=== PATIENT | male | born 1965 | race Caucasian/White ===

== ENCOUNTER 2017-09-02 16:36 | Inpatient (IN) | payer OTHER ==
[~2017-09-02] VITALS: Ht 162.6 cm; Wt 36.9 kg
[~2017-09-02 16:36] MED LIST: ABAC300; ACYC400 PO; ALBU90OI INH; ALBU90OI6; ALBU90OI6 INH; ALPR.5 PO; AMLO5 PO; AMOCLA875 PO; AMOX500; AMOX500 PO; ANTIVIRAL PO; ATRIPLA; AZIT250 PO; AZIT500 PO; AZITHROMYCIN PO; Augmentin 875-1 EACH PO; BUDE6HFA; Bactrim Ds Tab1 EACH PO; CEPH500 PO; COMPAZINE10 MG PO; COMPLERA; COMPLERA TABLE1 EACH PO; CULTURELLE1 EACH PO; DIPH50 PO; DOCU100 PO; DOXY100 PO; DULERA 200 MCG/13 GM INH; ERGO50000 PO; FLUC100 PO; FLUC200 PO; FLUSAL2505 IH; FLUSAL2505 INH; GABA100 PO; GUAI120S1 PO; GUAI600T33 PO; HYDACE10B PO; HYDACE25S PR; HYDACE5 PO; HYDACE5325 PO; ISODICACE PO; ITRA100 PO; K-Dur20 MEQ PO; LACT10SY PO; LEVFLO500 PO; LIDO4TS50 TOP; LIDO700A20 TOP; LINE600 PO; LOPE2C PO; LORA1 PO; Levaquin500 MG PO; Lomotil Tablet1 EACH PO; MAGIC MOUTHWASH; MAGOXI400 PO; MEGESTROL400 MG/10 PO; METO5A PO; MIRT15 PO; MIRT30 PO; MULVITMIND PO; MUPI2TC TOP; Megestrol400 MG/10 PO; Men's Multi-Vi1 EACH PO; Mucinex600 MG PO; NAPPHEOPSO OU; NEOPOLHCSU OT; NODOLOR CAPSUL1 EACH PO; NYST100000 PO; NYST100SU MT; Norco 10-325 T1 EACH PO; OLOP.1OPSO OU; OMEP20ER PO; ONDA4 PO; ONDA4 SL; ONDA4ODT MM; OXYACE5T PO; OXYC1TAB11 PO; OXYC5 PO; POTCHL20ER PO; PRED10 PO; PRED20 PO; PROAIR RESPICL90 MCG INH; PROC10 PO; PROCODE120 PO; PROM25 PO; Percocet 10-321 EACH PO; Percocet 5-3251 EACH PO; Prednisone20 MG PO; RANI150EL PO; RXPROM25 PO; SPIRIVA PO; SULTRIDS PO; Sudogest30 MG PO; THEO100ERA PO; TIOT18 IH; TIOT18 INH; TIVICAY50 MG PO; TRAM50 PO; TRIA80TC TOP; TRIPLA PO; Truvada Tablet1 EACH PO; VANC125 PO; VANCOMYCIN125 MG/2.5 PO; VORI200 PO; Zofran Odt8 MG SL; Zofran4 MG PO; [UNRECOGNIZED DRUG - REMARK]; [UNRECOGNIZED DRUG - REMARK]
[2017-09-02] MEDS ORDERED: FOLI1 PO (17:08)
[2017-09-02] MEDS ORDERED: Bactrim Ds Tab1 EACH PO (17:08)
[2017-09-02] MEDS ORDERED: HYDRA25 PO (17:08)
[2017-09-02] MEDS ORDERED: AZIT500 PO (17:08)
[2017-09-02] MEDS ORDERED: DRON2.5 PO (17:09)
[2017-09-02] MEDS ORDERED: LOPE2C PO (17:09)
[2017-09-02] MEDS ORDERED: MEGE40T (17:10)
[2017-09-02 17:11] LABS: Hematocrit 31.4 % (37.0-53.0); Hemoglobin 9.7 g/dL (13.5-17.5); Mean Corpuscular HGB 30.7 pg (26.0-34.0); Mean Corpuscular HGB Conc 30.9 g/dL (31.5-36.5); Mean Corpuscular Volume 99 fL (80-100); Platelet Count 455 K/mm3 (150-400); RDW Coefficient Variation 18.1 % (11.7-14.2); Red Blood Cell Count 3.16 M/mm3 (4.30-5.90); White Blood Cell Count 8.05 K/mm3 (4.00-11.30)
[2017-09-02] MEDS ORDERED: METR250 PO (17:11)
[2017-09-02] MEDS ORDERED: AMLO10 PO (17:11)
[2017-09-02] MEDS ORDERED: NYST100000 (17:12)
[2017-09-02 17:13] LABS: PO2 Arterial 145 mmHg (80-100); pH Blood Arterial 7.34 (7.35-7.45)
[2017-09-02] MEDS ORDERED: SUPER ENZYME C1 EACH PO (17:13)
[2017-09-02] MEDS ORDERED: PRED1 PO (17:13)
[2017-09-02 17:28] LABS: Alanine Aminotransfer (ALT/SGP 25 U/L (12-78); Albumin, Blood 2.7 g/dL (3.4-5.0); Albumin/Globulin Ratio 0.7 (0.8-1.8); Alk Phos 478 U/L (50-136); Anion Gap 10 mmol/L (6-16); Aspartate Aminotrans (AST/SGOT 33 U/L (12-37); Bilirubin, Total 0.6 mg/dL (0.1-1.0); Blood Urea Nitrogen 11 mg/dL (8-24); Bun/Creatinine Ratio 26.8 (12.0-20.0); CO2, Blood 27 mmol/L (21-32); Calcium, Blood 8.9 mg/dL (8.5-10.1); Chloride, Blood 97 mmol/L (98-108); Creatinine, Blood 0.41 mg/dL (0.60-1.20); Globulin, Blood 3.8 g/dL (2.2-4.0); Glomerular Filtration Rate >60 (60-); Glucose, Blood 105 mg/dL (70-99); Lactate Dehydrogenase (Ld),Bld 348 U/L (100-240); Potassium, Blood 2.7 mmol/L (3.5-5.5); Sodium, Blood 134 mmol/L (136-145); Total Protein, Blood 6.5 g/dL (6.4-8.2); Troponin I <0.015 ng/mL (0.000-0.040)
[2017-09-02 17:35] LABS: Magnesium, Blood 0.9 mg/dL (1.6-2.4)
[2017-09-02 17:44] LABS: BAND PERCENT MAN 28 % (0-8); BASOPHILS PERCENT MAN 0 % (0-2); EOSINOPHILS PERCENT MAN 0 % (0-6); LYMPHOCYTES ABSOLUTE MAN 0.24 K/mm3 (0.84-5.20); LYMPHOCYTES PERCENT MAN 3 % (21-46); MONOCYTES ABSOLUTE MAN 0.72 K/mm3 (0.16-1.47); MONOCYTES PERCENT MAN 9 % (4-13); NEUTROPHILS ABSOLUTE MAN 7.08 K/mm3 (1.96-9.15); SEG NEUTROPHILS PERCENT MAN 60 % (41-73); TOTAL CELLS COUNTED 100
[2017-09-03] MEDS ORDERED: ONDA4 PO (01:11)
[2017-09-03 03:46] LABS: Hematocrit 30.4 % (37.0-53.0); Hemoglobin 9.5 g/dL (13.5-17.5); Mean Corpuscular HGB 30.6 pg (26.0-34.0); Mean Corpuscular HGB Conc 31.3 g/dL (31.5-36.5); Mean Corpuscular Volume 98 fL (80-100); Mean Platelet Volume 10.2 fL (9.1-12.4); Platelet Count 475 K/mm3 (150-400); RDW Coefficient Variation 18.1 % (11.7-14.2); RDW Standard Deviation 64.7 fL (35.1-46.3); White Blood Cell Count 11.76 K/mm3 (4.00-11.30)
[2017-09-03 04:05] LABS: Alanine Aminotransfer (ALT/SGP 22 U/L (12-78); Albumin, Blood 2.5 g/dL (3.4-5.0); Albumin/Globulin Ratio 0.7 (0.8-1.8); Alk Phos 409 U/L (50-136); Anion Gap 6 mmol/L (6-16); Aspartate Aminotrans (AST/SGOT 27 U/L (12-37); Bilirubin, Total 0.2 mg/dL (0.1-1.0); Blood Urea Nitrogen 9 mg/dL (8-24); CO2, Blood 31 mmol/L (21-32); Calcium, Blood 8.3 mg/dL (8.5-10.1); Chloride, Blood 99 mmol/L (98-108); Creatinine, Blood 0.38 mg/dL (0.60-1.20); Globulin, Blood 3.5 g/dL (2.2-4.0); Glomerular Filtration Rate >60 (60-); Glucose, Blood 94 mg/dL (70-99); Potassium, Blood 3.3 mmol/L (3.5-5.5); Sodium, Blood 136 mmol/L (136-145)
[2017-09-03 05:24] LABS: BAND PERCENT MAN 23 % (0-8); BASOPHILS PERCENT MAN 0 % (0-2); EOSINOPHILS PERCENT MAN 0 % (0-6); LYMPHOCYTES ABSOLUTE MAN 0.58 K/mm3 (0.84-5.20); LYMPHOCYTES PERCENT MAN 5 % (21-46); METAMYELOCYTE PERCENT MAN 6 % (0-0); MONOCYTES ABSOLUTE MAN 0.82 K/mm3 (0.16-1.47); MONOCYTES PERCENT MAN 7 % (4-13); MYELOCYTE ABSOLUTE MAN 0.35 K/mm3 (0.00-0.00); MYELOCYTE PERCENT MAN 3 % (0-0); NEUTROPHILS ABSOLUTE MAN 9.29 K/mm3 (1.96-9.15); SEG NEUTROPHILS PERCENT MAN 56 % (41-73); TOTAL CELLS COUNTED 100
[2017-09-04 04:09] LABS: Hematocrit 28.6 % (37.0-53.0); Hemoglobin 9.1 g/dL (13.5-17.5); Mean Corpuscular HGB 31.1 pg (26.0-34.0); Mean Corpuscular HGB Conc 31.8 g/dL (31.5-36.5); Mean Corpuscular Volume 98 fL (80-100); Mean Platelet Volume 10.2 fL (9.1-12.4); Platelet Count 468 K/mm3 (150-400); Red Blood Cell Count 2.93 M/mm3 (4.30-5.90); White Blood Cell Count 11.13 K/mm3 (4.00-11.30)
[2017-09-04 04:39] LABS: Alanine Aminotransfer (ALT/SGP 18 U/L (12-78); Albumin, Blood 2.4 g/dL (3.4-5.0); Albumin/Globulin Ratio 0.7 (0.8-1.8); Alk Phos 372 U/L (50-136); Anion Gap 6 mmol/L (6-16); Aspartate Aminotrans (AST/SGOT 20 U/L (12-37); Bilirubin, Total 0.3 mg/dL (0.1-1.0); Blood Urea Nitrogen 7 mg/dL (8-24); Bun/Creatinine Ratio 20.3 (12.0-20.0); CO2, Blood 29 mmol/L (21-32); Calcium, Blood 8.1 mg/dL (8.5-10.1); Chloride, Blood 97 mmol/L (98-108); Creatinine, Blood 0.34 mg/dL (0.60-1.20); Globulin, Blood 3.6 g/dL (2.2-4.0); Glomerular Filtration Rate >60 (60-); Glucose, Blood 82 mg/dL (70-99); Potassium, Blood 4.5 mmol/L (3.5-5.5); Sodium, Blood 132 mmol/L (136-145)
[2017-09-04 04:58] LABS: BAND PERCENT MAN 7 % (0-8); BASOPHILS PERCENT MAN 0 % (0-2); EOSINOPHILS PERCENT MAN 0 % (0-6); LYMPHOCYTES ABSOLUTE MAN 0.33 K/mm3 (0.84-5.20); LYMPHOCYTES PERCENT MAN 3 % (21-46); METAMYELOCYTE ABSOLUTE MAN 0.33 K/mm3 (0.00-0.00); METAMYELOCYTE PERCENT MAN 3 % (0-0); MONOCYTES ABSOLUTE MAN 0.55 K/mm3 (0.16-1.47); MONOCYTES PERCENT MAN 5 % (4-13); MYELOCYTE ABSOLUTE MAN 0.11 K/mm3 (0.00-0.00); MYELOCYTE PERCENT MAN 1 % (0-0); NEUTROPHILS ABSOLUTE MAN 9.79 K/mm3 (1.96-9.15); SEG NEUTROPHILS PERCENT MAN 81 % (41-73); TOTAL CELLS COUNTED 100
[2017-09-04 07:51] LABS: Adenovirus F 40/41 Not Detected (NOT DETECT); Astrovirus Not Detected (NOT DETECT); Campylobacter Sp Not Detected (NOT DETECT); Cryptosporidium Not Detected (NOT DETECT); Cyclospora Cayetanensis Not Detected (NOT DETECT); E. Coli O157 Not Detected (NOT DETECT); Entamoeba Histolytica Not Detected (NOT DETECT); Enteroaggregative E. coli-EAEC Not Detected (NOT DETECT); Enteropathogenic E. coli-EPEC Not Detected (NOT DETECT); Enterotoxigenic E. coli-ETEC Not Detected (NOT DETECT); Giardia Lamblia Not Detected (NOT DETECT); Plesiomonas Shigelloides Not Detected (NOT DETECT); Rotavirus A Not Detected (NOT DETECT); Salmonella Sp Not Detected (NOT DETECT); Sapovirus Not Detected (NOT DETECT); Shiga Toxin-prod E. coli-STEC Not Detected (NOT DETECT); Shigella/Enteroin E. coli-EIEC Not Detected (NOT DETECT); Vibrio Cholerae Not Detected (NOT DETECT); Vibrio Sp Not Detected (NOT DETECT); Yersinia Enterocolitica Not Detected (NOT DETECT)
[2017-09-04 10:06] LABS: Norovirus GI/GII Detected (NOT DETECT)
[2017-09-06 05:55] LABS: Albumin, Blood 2.7 g/dL (3.4-5.0); Anion Gap 10 mmol/L (6-16); Blood Urea Nitrogen 6 mg/dL (8-24); Bun/Creatinine Ratio 17.8 (12.0-20.0); CO2, Blood 22 mmol/L (21-32); Calcium, Blood 9.3 mg/dL (8.5-10.1); Chloride, Blood 107 mmol/L (98-108); Creatinine, Blood 0.34 mg/dL (0.60-1.20); Glomerular Filtration Rate >60 (60-); Glucose, Blood 76 mg/dL (70-99); Magnesium, Blood 1.5 mg/dL (1.6-2.4); Phosphorus, Blood 2.7 mg/dL (2.5-4.9); Potassium, Blood 3.3 mmol/L (3.5-5.5); Sodium, Blood 139 mmol/L (136-145)
[2017-09-07 06:11] LABS: Albumin, Blood 2.4 g/dL (3.4-5.0); Anion Gap 10 mmol/L (6-16); Blood Urea Nitrogen 6 mg/dL (8-24); Bun/Creatinine Ratio 15.4 (12.0-20.0); CO2, Blood 24 mmol/L (21-32); Calcium, Blood 8.6 mg/dL (8.5-10.1); Chloride, Blood 102 mmol/L (98-108); Creatinine, Blood 0.39 mg/dL (0.60-1.20); Glomerular Filtration Rate >60 (60-); Glucose, Blood 100 mg/dL (70-99); Magnesium, Blood 1.6 mg/dL (1.6-2.4); Phosphorus, Blood 1.4 mg/dL (2.5-4.9); Potassium, Blood 3.3 mmol/L (3.5-5.5); Sodium, Blood 136 mmol/L (136-145)
[2017-09-07] MEDS ORDERED: LEVO750 PO (13:54)
== END 2017-09-07 16:33 | disposition home or self-care (01) | DRG 974 ==
LOC: ER 16:36 → MEDS 18:45 → PCU 18:45 → MEDS 09-06 18:50
PROVIDERS: Emergency Medicine; Internal Medicine
PROC: 02HV33Z Insertion of Infusion Device into Superior Vena Cava, Percutaneous Approach (ICD-10-PCS; principal; 2017-09-02)
DX: B20 Human immunodeficiency virus [HIV] disease (principal); B44.0 Invasive pulmonary aspergillosis; J18.9 Pneumonia, unspecified organism; J96.02 Acute respiratory failure with hypercapnia; E43 Unspecified severe protein-calorie malnutrition; R64 Cachexia; Z99.81 Dependence on supplemental oxygen; J96.21 Acute and chronic respiratory failure with hypoxia; E83.39 Other disorders of phosphorus metabolism; E83.42 Hypomagnesemia; E87.6 Hypokalemia; J44.9 Chronic obstructive pulmonary disease, unspecified; R19.7 Diarrhea, unspecified; Z79.899 Other long term (current) drug therapy; Z91.19 Patient's noncompliance with other medical treatment and regimen
CPT/HCPCS: 36415; 36600; 71045; 80053; 80069; 82803; 83605; 83615; 83735; 83880; 84484; 85007; 85025; 85027; 87015; 87040; 87070; 87077; 87102; 87106; 87116; 87186; 87205; 87206; 87252; 87254; 87278; 87507; 93005; 93010; 94640; 94760; 96365; 96367; 96375; 99285; J0456; J0696; J1650; J2270; J2405; J3010; J3475; J7040; J7050; Q0167

== ENCOUNTER 2017-09-07 17:41 | Emergency (ER) | payer OTHER ==
[~2017-09-07] VITALS: Ht 165.1 cm; Wt 31.8 kg
[~2017-09-07 17:41] MED LIST changes: +AMLO10 PO; +DRON2.5 PO; +FOLI1 PO; +HYDRA25 PO; +LEVO750 PO; +MEGE40T; +METR250 PO; +NYST100000; +PRED1 PO; +SUPER ENZYME C1 EACH PO
== END 2017-09-07 18:41 | disposition left against medical advice (07) ==
LOC: ER 17:41
DX: Z53.21 Procedure and treatment not carried out due to patient leaving prior to being seen by health care provider (principal)
CPT/HCPCS: 99281

== ENCOUNTER 2017-09-15 07:52 | Emergency (ER) | payer OTHER ==
[~2017-09-15] VITALS: Ht 162.6 cm; Wt 34.0 kg
[2017-09-15 08:27] LABS: BASOPHILS ABSOLUTE AUTO 0.05 K/mm3 (0.00-0.23); BASOPHILS PERCENT AUTO 1 % (0-2); Hematocrit 26.8 % (37.0-53.0); Hemoglobin 8.7 g/dL (13.5-17.5); LYMPHOCYTES ABSOLUTE AUTO 0.52 K/mm3 (0.84-5.20); LYMPHOCYTES PERCENT AUTO 7 % (21-46); MONOCYTES ABSOLUTE AUTO 0.55 K/mm3 (0.16-1.47); MONOCYTES PERCENT AUTO 8 % (4-13); Mean Corpuscular HGB 31.8 pg (26.0-34.0); Mean Corpuscular HGB Conc 32.5 g/dL (31.5-36.5); Mean Corpuscular Volume 98 fL (80-100); Mean Platelet Volume 9.1 fL (9.1-12.4); Platelet Count 566 K/mm3 (150-400); RDW Coefficient Variation 18.9 % (11.7-14.2); RDW Standard Deviation 67.5 fL (35.1-46.3); Red Blood Cell Count 2.74 M/mm3 (4.30-5.90); White Blood Cell Count 7.24 K/mm3 (4.00-11.30)
[2017-09-15 08:28] LABS: EOSINOPHILS ABSOLUTE AUTO 0.02 K/mm3 (0.00-0.68); EOSINOPHILS PERCENT AUTO 0 % (0-6); IMMATURE GRAN ABSOLUTE AUTO 0.52 K/mm3 (0.00-0.10); IMMATURE GRAN PERCENT AUTO 7 % (0-1); NEUTROPHILS ABSOLUTE AUTO 5.58 K/mm3 (1.96-9.15); NEUTROPHILS PERCENT AUTO 77 % (41-73)
[2017-09-15 08:46] LABS: Alanine Aminotransfer (ALT/SGP 22 U/L (12-78); Albumin, Blood 2.6 g/dL (3.4-5.0); Albumin/Globulin Ratio 0.7 (0.8-1.8); Alk Phos 371 U/L (50-136); Anion Gap 10 mmol/L (6-16); Aspartate Aminotrans (AST/SGOT 32 U/L (12-37); Bilirubin, Total 0.3 mg/dL (0.1-1.0); Blood Urea Nitrogen 13 mg/dL (8-24); CO2, Blood 21 mmol/L (21-32); Calcium, Blood 7.7 mg/dL (8.5-10.1); Chloride, Blood 104 mmol/L (98-108); Creatinine, Blood 0.45 mg/dL (0.60-1.20); Globulin, Blood 3.9 g/dL (2.2-4.0); Glomerular Filtration Rate >60 (60-); Glucose, Blood 77 mg/dL (70-99); Potassium, Blood 2.8 mmol/L (3.5-5.5); Sodium, Blood 135 mmol/L (136-145); Total Protein, Blood 6.5 g/dL (6.4-8.2); Troponin I <0.015 ng/mL (0.000-0.040)
[2017-09-15 08:48] LABS: BAND PERCENT MAN 9 % (0-8); BASOPHILS ABSOLUTE MAN 0.07 K/mm3 (0.00-0.23); BASOPHILS PERCENT MAN 1 % (0-2); EOSINOPHILS PERCENT MAN 0 % (0-6); LYMPHOCYTES ABSOLUTE MAN 0.86 K/mm3 (0.84-5.20); LYMPHOCYTES PERCENT MAN 12 % (21-46); MONOCYTES PERCENT MAN 7 % (4-13); NEUTROPHILS ABSOLUTE MAN 5.71 K/mm3 (1.96-9.15); PROMYELOCYTE ABSOLUTE MAN 0.07 K/mm3 (0.00-0.00); PROMYELOCYTE PERCENT MAN 1 % (0-0); SEG NEUTROPHILS PERCENT MAN 70 % (41-73); TOTAL CELLS COUNTED 100
[2017-09-15 09:37] LABS: Magnesium, Blood 0.6 mg/dL (1.6-2.4)
[2017-09-15] MEDS ORDERED: MAGOXI400 PO (10:13)
== END 2017-09-15 11:08 | disposition home or self-care (01) ==
LOC: ER 07:52
PROVIDERS: Emergency Medicine
DX: R07.89 Other chest pain (principal); E87.6 Hypokalemia; E83.42 Hypomagnesemia; F41.9 Anxiety disorder, unspecified; Z79.899 Other long term (current) drug therapy; Z79.2 Long term (current) use of antibiotics; J44.9 Chronic obstructive pulmonary disease, unspecified; Z90.49 Acquired absence of other specified parts of digestive tract; Z90.89 Acquired absence of other organs; Z95.2 Presence of prosthetic heart valve
CPT/HCPCS: 71101; 80053; 83735; 84484; 85025; 93005; 93010; 96365; 96375; 99284; J0780; J3475

== ENCOUNTER 2017-09-17 08:05 | Inpatient (IN) | payer OTHER ==
[~2017-09-17] VITALS: Ht 162.6 cm; Wt 29.6 kg
[2017-09-17 08:31] LABS: Hemoglobin 9.5 g/dL (13.5-17.5); Mean Corpuscular HGB 31.1 pg (26.0-34.0); Mean Corpuscular HGB Conc 31.7 g/dL (31.5-36.5); Mean Corpuscular Volume 98 fL (80-100); Mean Platelet Volume 9.3 fL (9.1-12.4); Platelet Count 511 K/mm3 (150-400); RDW Coefficient Variation 18.8 % (11.7-14.2); RDW Standard Deviation 68.1 fL (35.1-46.3); Red Blood Cell Count 3.05 M/mm3 (4.30-5.90); White Blood Cell Count 10.83 K/mm3 (4.00-11.30)
[2017-09-17 08:44] LABS: International Normalized Ratio 2.51; Prothrombin Time Results 26.9 Sec (9.7-11.5)
[2017-09-17 08:46] LABS: Alanine Aminotransfer (ALT/SGP 31 U/L (12-78); Albumin, Blood 2.9 g/dL (3.4-5.0); Albumin/Globulin Ratio 0.7 (0.8-1.8); Alk Phos 470 U/L (50-136); Anion Gap 8 mmol/L (6-16); Aspartate Aminotrans (AST/SGOT 36 U/L (12-37); Bilirubin, Total 0.5 mg/dL (0.1-1.0); Blood Urea Nitrogen 13 mg/dL (8-24); Bun/Creatinine Ratio 28.1 (12.0-20.0); CO2, Blood 25 mmol/L (21-32); Calcium, Blood 8.5 mg/dL (8.5-10.1); Chloride, Blood 102 mmol/L (98-108); Creatinine, Blood 0.46 mg/dL (0.60-1.20); Globulin, Blood 4.3 g/dL (2.2-4.0); Glomerular Filtration Rate >60 (60-); Glucose, Blood 78 mg/dL (70-99); Potassium, Blood 3.1 mmol/L (3.5-5.5); Sodium, Blood 135 mmol/L (136-145); Total Protein, Blood 7.2 g/dL (6.4-8.2)
[2017-09-17 08:49] LABS: PCO2 Arterial 40.5 mmHg (35-45); PO2 Arterial 129 mmHg (80-100); pH Blood Arterial 7.31 (7.35-7.45)
[2017-09-17 08:52] LABS: BAND PERCENT MAN 18 % (0-8); BASOPHILS PERCENT MAN 0 % (0-2); EOSINOPHILS PERCENT MAN 0 % (0-6); LYMPHOCYTES % ATYPICAL MANUAL 2 % (0-0); LYMPHOCYTES ABSOLUTE MAN 0.97 K/mm3 (0.84-5.20); LYMPHOCYTES PERCENT MAN 7 % (21-46); METAMYELOCYTE PERCENT MAN 1 % (0-0); MONOCYTES ABSOLUTE MAN 0.86 K/mm3 (0.16-1.47); MONOCYTES PERCENT MAN 8 % (4-13); NEUTROPHILS ABSOLUTE MAN 8.88 K/mm3 (1.96-9.15); SEG NEUTROPHILS PERCENT MAN 64 % (41-73); TOTAL CELLS COUNTED 100
[2017-09-24] MEDS ORDERED: ACET325S PR (09:49)
[2017-09-24] MEDS ORDERED: Omeprazole20 M1 PO (09:50)
[2017-09-24] MEDS ORDERED: MORP20L SL (09:50)
== END 2017-09-24 11:00 | disposition hospice, home (50) | DRG 974 ==
LOC: ER 08:05 → MEDS 08:06 → ER 08:06 → MEDS 11:59 → ENPENDDIS 09-24 09:00 → MEDS 09-24 11:00
PROVIDERS: Emergency Medicine
DX: B20 Human immunodeficiency virus [HIV] disease (principal); J96.21 Acute and chronic respiratory failure with hypoxia; J18.9 Pneumonia, unspecified organism; E43 Unspecified severe protein-calorie malnutrition; R64 Cachexia; J44.0 Chronic obstructive pulmonary disease with (acute) lower respiratory infection; E87.6 Hypokalemia; E88.09 Other disorders of plasma-protein metabolism, not elsewhere classified; Z51.5 Encounter for palliative care; Z66 Do not resuscitate; Z87.891 Personal history of nicotine dependence
CPT/HCPCS: 36415; 36600; 71045; 80053; 82803; 83605; 85025; 85610; 85730; 87040; 87493; 93005; 93010; 94640; 94660; 94760; 96365; 96366; 96367; 96368; 96375; 99285; J1956; J2060; J2270; J2405; J2543; J7030